=== PATIENT | female | born 1995 | race Caucasian/White ===

== ENCOUNTER 2019-03-11 02:11 | Observation (INO) ==
[2019-03-11] MEDS ORDERED: Ondansetron ODT 4 MG TAB.RAPDIS SL ONE (02:36)
[2019-03-11 02:37] LABS: Bilirubin,Urine Small (Negative); Blood,Urine Small (Negative); Clarity,Urine Clear (Clear); Color,Urine Yellow (Yellow); Glucose,Urine (UA) Normal (Normal); Ketones,Urine >=160 mg/dL (Negative); Leukocyte Esterase,Urine Negative (Negative); Nitrite,Urine Negative (Negative); Protein,Urine 30 mg/dL (Neg-Trace); Specific Gravity,Urine >= 1.030 (1.010-1.025); Urobilinogen,Urine Normal (Normal)
[2019-03-11 02:46] LABS: Mucus,Urine Many (Few); RBC,Urine 0-3 per hpf (0-3); Squamous Epithelial Cell,Urine Few per lpf (None-Few); WBC,Urine 0-3 per hpf (0-3)
[2019-03-11 02:47] LABS: Bacteria,Urine Many per hpf (None-Few)
[2019-03-11] MEDS ORDERED: *HR* Promethazine 25 MG/ML VIAL IVP ONE (03:26)
[2019-03-11] MEDS ORDERED: 0.9 % Sodium Chloride 1,000 ML IVC SCH ×2 (03:30→05:15)
[2019-03-11] MEDS ORDERED: 0.9 % Sodium Chloride 1,000 ML IVC ONE (03:54)
--- NOTE | 2019-03-11 04:46 | Emergency Department Note ---
Disposition Clinical Impression: Marijuana use, continuous, Cannabinoid hyperemesis syndrome Intractable vomiting Qualifiers: Vomiting type: unspecified Nausea presence: unspecified Qualified Code(s): R11.10 - Vomiting, unspecified Disposition: Admitted As Inpatient Condition: Fair Time of Disposition: 05:00 Nausea/Vomiting/Diarrhea HPI - General Chief complaint: ED Nausea/Vomiting/Diarrhea Stated complaint: vomiting, chills Time Seen by Provider: 03/11/19 02:15 Source: patient Limitations: no limitations Nursing Notes Reviewed: Yes Vital Signs Reviewed: Yes - History of Present Illness HPI Narrative: 23-year-old female presents for evaluation of vomiting. Patient was seen earlier yesterday for evaluation of epigastric pain and vomiting. At that time she refused pain medicine and antiemetics but did not respond to IV Pepcid. Patient recently is being evaluated for epigastric pain and vomiting. She was scheduled for an EGD and colonoscopy in January, but due to reaction to bowel prep, though scopes were not done. She has failed to follow-up for further evaluation since that time. Patient has had CT scan of the abdomen in December and ultrasound of the liver in December which showed no acute abnormalities other than fatty infiltration of the liver. Patient was supposed to be taking Prilosec but has not been taking it. Patient also states that she has a regular user of marijuana - Related Data Previous Rx's Medication Instructions Recorded Omeprazole 20 mg PO QDPC #28 tablet. 12/22/18 Promethazine [Phenergan] 25 mg PO Q8HR #21 tablet 12/22/18 Famotidine [Pepcid] 20 mg PO BID #60 tablet 03/10/19 Ondansetron HCl [Zofran] 4 mg PO Q6H PRN #10 tablet 03/10/19 Allergies Allergy/AdvReac Type Severity Reaction Status Date / Time cephalexin [From Keflex] Allergy Swelling Verified 03/11/19 02:24 of Lip/Tongue/Throat doxycycline [From Vibramycin] Allergy Hives Verified 03/11/19 02:24 iodine Allergy Hives Verified 03/11/19 02:24 latex Allergy Hives Verified 03/11/19 02:24 Penicillins Allergy Hives Verified 03/11/19 02:24 acetaminophen [From [place]] AdvReac Nausea Verified 03/11/19 02:24 hydrocodone [From [place]] AdvReac Nausea Verified 03/11/19 02:24 morphine AdvReac Hallucinati Verified 03/11/19 02:24 ng Review of Systems: Constitutional: [Negative for fever and chills.] HENT: [Negative for congestion.] Eyes: [Negative for discharge.] Respiratory: [Negative for shortness of breath.] Cardiovascular: [Negative for chest pain.] Gastrointestinal: see history of present illness Endocrine: [Negative for excessive thirst,urination] Genitourinary: [Negative for dysuria and frequency.] Musculoskeletal: [Negative for myalgias and arthralgias.] Skin: [Negative for rash.] Neurological: [Negative for dizziness, localized weakness and headaches.] Psychiatric/Behavioral: [Negative for nervous/anxious.] All other systems reviewed and are negative. Past Medical History - Past Medical History Attestation: Yes The following information was validated with the patient. Source: patient Medical history: Reports: asthma, other Surgical history: Reports: appendectomy, cholecystectomy Psychiatric history: Reports: no psych history [employer] history: Reports: non-contributory - Social History Smoking Status: Former smoker Smokeless Tobacco Status: No Alcohol use: Reports: rarely Drug use: Reports: marijuana Physical Exam Constitutional: Patient is [alert], morbidly obese and is actively vomiting and cooperative. HENT: Head: Normocephalic and atraumatic. Right Ear: External ear normal. Left Ear: External ear normal. Nose: Nose normal. Mouth/Throat: Oropharynx is clear and mucous membranes show mild dehydration Eyes: Conjunctivae and EOM are normal. Pupils are equal, round, and reactive to light. Right eye exhibits [no] discharge. Left eye exhibits [no] discharge. Neck: Trachea is midline, normal range of motion and [phonation normal]. Neck supple. Cardiovascular: [Regular rhythm], S1 normal, S2 normal, normal heart sounds and intact distal pulses. Exam reveals no gallop and no friction rub. No murmur heard. [Capillary refill is brisk.] [Peripheral pulses are 2+] Pulmonary/Chest: Effort [normal] No stridor. [No] tachypnea. [No] respiratory distress. There are [no] decreased breath sounds. [There no wheezes, no rhonchi, or rales.] Abdominal: Soft. [Bowel sounds are normal]. There exhibits [no] distension and [no] mass. There is no hepatosplenomegaly. There is [no tenderness], [no] CVA tenderness. There is [no rigidity, no rebound, no guarding]. Musculoskeletal: Normal range of motion of uninvolved extremities. There exhibits [no edema]. [ ] Neurological: Patient is alert. Patient displays no atrophy and no tremor. Moves all 4 extremities equally without gross deficit. No cranial nerve deficit and exhibits normal muscle tone. Coordination normal grossly. Skin: Skin is warm and dry. No erythema. No rash noted. Psychiatric: Patient has a [normal mood and affect.] Course Course Narrative: Patient was discussed initially with Dr. Trent but after evaluation of prior testing as determined that Dr. Cote was probably her primary care physician. I spoke with Dr. Cote who will accept the patient for admission Discussed diagnosis and further treatment plans with patient [and significant other]. Q uestions addressed. - Reevaluation(s) Reevaluation #1: Patient has had multiple doses of antiemetics and IV fluids here in the emergency department with no improvement of her symptoms Vital Signs Temperature 98.5 F 03/11/19 02:20 Pulse Rate 71 03/11/19 02:20 Respiratory Rate 18 03/11/19 02:20 Blood Pressure 134/90 03/11/19 02:20 O2 Sat by Pulse Oximetry 100 03/11/19 02:20 Temperature 98.5 F 03/11/19 02:20 Pulse Rate 65 03/11/19 04:24 Respiratory Rate 18 03/11/19 04:24 Blood Pressure 141/79 03/11/19 04:24 O2 Sat by Pulse Oximetry 100 03/11/19 04:24 Oxygen Delivery Oxygen Delivery Room Air Nausea/Vomiting/Diarrhea - [facility] Narrative Medical decision making narrative: With the patient's history of regular marijuana use this may be cannaboid hyperemesis syndrome Other etiologies could include peptic ulcer disease, gastritis, esophagitis, GERD - Lab Data Lab results reviewed: Yes I reviewed the patient's lab results. Lab Results 03/11/19 03/11/19 Range/Units 02:29 02:29 Urine Color Yellow (Yellow) Urine Clarity Clear (Clear) Urine pH 6.0 (5.0-8.0) pH Units Ur Specific [place] >= 1.030 H (1.010-1.025) Urine Protein 30 H (Neg-Trace) mg/dL Urine Glucose (UA) Normal (Normal) mg/dL Urine Ketones >=160 H (Negative) mg/dL Urine Blood Small H (Negative) Urine Nitrite Negative (Negative) Urine Bilirubin Small H (Negative) Urine Urobilinogen Normal (Normal) mg/dL Ur Leukocyte Esterase Negative (Negative) Urine Microscopic RBC 0-3 (0-3) per hpf Urine Microscopic WBC 0-3 (0-3) per hpf Ur Squamous Epith Cells Few (None-Few) per lpf Urine Bacteria Many H (None-Few) per hpf Urine Mucus Many H (Few) Ur Culture Indicated? YES A (NO) Urine Test Negative (Negative) - Radiology Data Radiology results reviewed: Yes I reviewed the patient's radiology results. XR/XR acute abdominal series IMPRESSION: No acute abnormalities seen in the chest abdomen or pelvis
[2019-03-11] MEDS ORDERED: *HR* LORazepam 2 MG/ML VIAL IVP ONE (04:52)
[2019-03-11] MEDS ORDERED: Metoclopramide 10 MG/2 ML VIAL IVP ONE (04:52)
[2019-03-11] MEDS ORDERED: Prochlorperazine 10 MG/2 ML VIAL IVP PRN (06:09)
[2019-03-11] MEDS ORDERED: Pantoprazole 40 MG VIAL IVP ONE ×2 (06:31→06:34)
[2019-03-11] MEDS: 0.9 % Sodium Chloride 1,000 ML IVC SCH ×3 (06:47→22:59)
[2019-03-11] MEDS: Famotidine 20 MG/2 ML VIAL IVP SCH ×3 (06:47→16:56)
--- NOTE | 2019-03-11 07:04 | Internal Med History&Physical ---
Date of Encounter: 03/14/19 Time of Encounter: 06:59 Assessment and Plan (1) Cannabinoid hyperemesis syndrome Status: Acute Given her recurring vomiting that has escalated recently, and given her history of daily marijuana use, this may indeed be cannabinoid hyperemesis syndrome. This would be hard to prove in the short-term, she says however she has stopped smoking marijuana as of today. I told her it may take a while to know whether it may be related to this syndrome. It may be cyclic vomiting syndrome as below. In either case, she will discontinue the marijuana, see what happens over the next few months. She knows it may take a month or longer to have the marijuana out of her system. I have planned a urine test to see if there is anything else in her system for something that she has been using in the vape that she is unaware of. (2) Cyclic vomiting syndrome Status: Acute Because of her history of "stomach flu" in September, 2 weeks of nausea and vomiting in December, and now recurrence of symptoms starting last week d ifferential diagnosis would also include cyclic vomiting syndrome. Interestingly, she has a history of migraine headaches that frequently can accompany this. She has been on an SSRI, she is held recently because of her vomiting. I talked to her about starting amitriptyline to see if this is of help to decrease her migraines but also break the cyclic vomiting syndrome cycle. I talked her about potential side effects of sleepiness, dry mouth, constipation etc. CoQ10 at 200 mg twice a day could be added as well. Qualifiers: Vomiting Intractability: intractable Nausea presence: with nausea Qualified Code(s): G43.A1 - Cyclical vomiting, intractable (3) Right upper quadrant pain Status: Acute Patient is having recurring right upper quadrant and epigastric pain. Sometimes it subsides, other times comes in waves. CT scan was nonfocal. She has had her gallbladder and appendix taken out. She was awaiting her upper and lower endoscopy but she has not heard back from Dr. Marques. She would prefer to have anyone to this, just do it soon. She does not have an acute abdomen. (4) Intractable vomiting Status: Acute Intractable vomiting and having been in the ER twice in a few hours. Right now things are calmed down after she had PPI, Pepcid and Reglan in the ER. Differential diagnosis includes cannabinoid hyperemesis syndrome and cyclic vomiting syndrome as above. Currently I do not see signs of bowel obstruction, acute infection, etc. She has not been sexually active for a while and has a negative test. I do not think this is willful or bulimia. I talked to her about repeating the CT scan and she does not want to do so because of the radiation exposure and also not able to tolerate the oral prep. Qualifiers: Vomiting type: unspecified Nausea presence: unspecified Qualified Code(s): R11.10 - Vomiting, unspecified (5) Rash Status: Acute She has an acute rash on her right thigh that looks like tinea corporis. We will start Chlortrimazole cream. (6) Cardiac murmur Status: Chronic Incidental finding of a cardiac murmur. It sounds benign. I do not think this is related to her symptomatology. This ought to be looked at later as an outpatient though. (7) Weight loss, unintentional Status: Acute According to the scales, she has had in the neighborhood of 50 pounds of unintentional weight loss. This may be due to the vomiting, and may be due to the nausea and anorexia in between times. She had a normal CT scan of the abdomen and December. We will encourage her to follow up with a design engineering manager. Internal Medicine - H&P: HPI Chief complaint: I cannot stop vomiting Admitted From: Emergency Dept Plans for Post Hospital Care: Home History of present illness: Ms. Rodríguez is a 23 year old female who typically sees Marilee Stinson CNP in the office and has been having GI symptoms intermittently for the past few months. She had been in the ER twice in the past few hours because of nausea and vomiting. She was there about 11 PM with abdominal pain and shortness of breath and anxiety. She returned about 2:30 AM and had vomiting and retching intra ctably. She states that her symptoms first started in September when she had the "stomach flu" and she had nausea and vomiting for 3 or 4 days. Then 12/07/18 she had 2 weeks of GI symptoms of nausea and vomiting. She was evaluated in the ER and also in the office and then had an evaluation Dr. Jerald Araiza and was undergoing prep for upper and lower endoscopy. He had placed her on Prilosec and Phenergan. However, she said that she did not tolerate the prep, she said that the director maternal child at told her "that there must be shellfish in the prep" and that they had "no other type of prep to give for her". They do not contact her further, she said she could not contact them again and no workup was done. Then her symptoms recurred 03/02/19 with nausea and vomiting and anorexia.She has a hi story of having had appendectomy as a child, cholecystectomy, ERCP for stone retrieval and CT scans in the ER. She states that she has had almost 50 pounds of weight loss, (320 down to 278 documented in our office). She does have a history of migraine headaches for many years. They do not bother her very often. Typically she can fend them off with allergy medication or OTC Tylenol. Sometimes she has nausea and vomiting. She has a pressure squeezing sensation in her head when that occurs. One time it lasted for 10 days. Typically it will last for one half to one day. She does not always have GI symptoms associated with it. Other pertinent history is that she "vapes"/ Dabs marijuana. She gets a Dab cartridge and uses about 1.1 g per week. She does vape daily. She has been doing this well over a month. She says she gets this from a reputable source. She denies any side effects or problems with the marijuana. She denies any other illicit drug use. Past Med Surg Social Fam HX - Past Medical History Medical history: asthma, migraine, other Additional medical history: fatty liver Psychiatric history: no psych history - Past Surgical History Surgical History: appendectomy, cholecystectomy - Social History Smoking Status: Former smoker Smokeless Tobacco Status: No Alcohol use: rarely Drug use: marijuana (Uses a vape pen daily) Occupational status: unemployed Current living situation: Home Activity Level: Independent ambulation Recent Out of Country Travel Within the Last 8 Weeks: No Exposure or Possible Exposure to Illness During Travel: No - Family History Mother Hx Family Cardiac Disorders: Yes (Hypertension) Hx Family Cancer: Yes (Uterine cancer/hysterectomy) Father Hx Family Cancer: Yes (Lung cancer in his 60s) Sister Hx Family Medical Disorders: Yes (History of anemia) Maternal Grandfather Living Status: Hx Family Cancer: Yes (Prostate cancer) Maternal Grandmother Hx Family Respiratory Disorders: Yes (Sjogren's disease) Internal Medicine - H&P: Meds Omeprazole 20 mg PO QDPC #28 tablet. 12/22/18 [Rx] Famotidine [Pepcid] 20 mg PO BID #60 tablet 03/10/19 [Rx] Amitriptyline [Elavil] 50 mg PO HS #30 tablet 03/12/19 [Rx] Clotrimazole 1% CRM [Lotrimin 1%] 1 appl TP BID tube 03/12/19 [Rx] Promethazine [Phenergan] 25 mg RC Q6HR PRN #10 supp.rect 03/12/19 [Rx] Allergy/AdvReac Type Severity Reaction Status Date / Time cephalexin [From Kef[place]] Allergy Swelling Verified 03/11/19 02:24 of Lip/Tongue/Throat doxycycline [From Vibramycin] Allergy Hives Verified 03/11/19 02:24 iodine Allergy Hives Verified 03/11/19 02:24 latex Allergy Hives Verified 03/11/19 02:24 Penicillins Allergy Hives Verified 03/11/19 02:24 acetaminophen [From [place]] AdvReac Nausea Verified 03/11/19 02:24 hydrocodone [From [place]] AdvReac Nausea Verified 03/11/19 02:24 morphine AdvReac Hallucinati Verified 03/11/19 02:24 ng - Constitutional Constitutional: anorexia, weight loss (As in history of present illness), no excessive sweating, no fever(s) - EENT Eyes: no change in vision Nose, mouth and throat: no dental pain, no dry mouth, no sinus pressure, no sore throat - Cardiovascular Cardiovascular ROS IM: no chest pain, no dyspnea, no dyspnea on exertion, no irregular heart rhythm, no palpitations, no syncope - Respiratory Respiratory: no cough, no hemoptysis - Gastrointestinal Gastrointestinal: abdominal pain (Generally right upper quadrant and epigastric pain), no coffee ground emesis, no constipation, no diarrhea, no hematemesis, no hematochezia, no melena Additional comments: She complains of "heartburn". She also has some "dry heaves" at times - Genitourinary Genitourinary: no dysuria, no pelvic pain, no urinary urgency, no vaginal discharge Menstruation: cycle > 35 days (Her periods are irregular, she is on her menses now, previous one was in mid January) - Musculoskeletal Musculoskeletal ROS IM: no back pain, no joint swelling - Integumentary Integumentary IM: rash (She has a small circular rash on her right anterior thigh. In the past she has had psoriasis-type outbreak on her palms as well as her legs. She showed me pictures. None recently.) - Neurological Neurological ROS: no confusion, no disequilibrium, no tremor(s), no vertigo - Psychiatric Psychiatric: anxiety (She thought she had a panic attack in the ER last night when she is vomiting that made her short of breath.), no behavioral changes, no hallucinations, no memory loss - Constitutional Vitals: Temp Pulse Resp BP Pulse Ox 97.6 F 60 16 111/70 99 03/11/19 05:44 03/11/19 05:44 03/11/19 05:44 03/11/19 05:44 03/11/19 05:44 General appearance: Present: A&O X 3, no acute distress, obese, answers questions appropriately Exam: A few hours after admission and being treated in the ER, she was comfortable, quiet, conversant and in no distress. - Head Head exam: Present: atraumatic, normal inspection - ENT ENT exam: Present: normal oropharynx, TM's normal bilaterally - Respiratory Respiratory exam: Present: CTAB - Cardiovascular Cardiovascular exam: Present: RRR, +S1, +S2, systolic murmur (2/6 systolic murmur at the left sternal border) - GI/Abdominal GI/Abdominal exam: Present: soft. Absent: distended, guarding, hepatomegaly, mass, splenomegaly, tenderness Additional comments: Examination was done just a few hours after treatment in the ER with intravenous medication. - Extremities Exam Extremities exam: Absent: calf tenderness, pedal edema, tenderness - Neurological Exam Neurological exam: Present: alert, CN II-XII intact, oriented X3, strengths equal and symetr throughout - Psychiatric Psychiatric exam: Present: normal affect, normal mood. Absent: agitated, anxious, suicidal ideation - Skin Additional comments: Right anterior thigh is a well-circumscribed erythematous patch with sharp borders and partial clearing center consistent with tinea. She has extensive tattoo in the left thigh Internal Med - H&P Results - Labs Labs: Urine 03/11/19 Range/Units 02:29 Urine Color Yellow (Yellow) Urine Clarity Clear (Clear) Urine pH 6.0 (5.0-8.0) pH Units Ur Specific [place] >= 1.030 H (1.010-1.025) Urine Protein 30 H (Neg-Trace) mg/dL Urine Glucose (UA) Normal (Normal) mg/dL Labs from the ER have been reviewed. Urine shows increased specific gravity and ketones. Her blood work was fairly unremarkable otherwise - VTE Reasons for not Prescribing Prophylaxis: Treatment not Indicated - Low risk for VTE
[2019-03-11] MEDS: Pantoprazole 40 MG VIAL IVP SCH (09:13)
[2019-03-11] MEDS: Clotrimazole 1% CRM 15 GM TUBE TP SCH ×2 (11:22→20:22)
--- NOTE | 2019-03-11 20:04 | Event Note ---
Date of Encounter: 03/11/19 Time of Encounter: 19:30 I reevaluated the patient this evening. This morning she was doing well, and then this afternoon she had nausea. She has had some soda, but virtually no solid intake other than trying one saltine cracker. She said she had dry heaves, but did not tell the nurse or staff. She is holding an emesis bag. She wanted to be medicated and the evening Pepcid was given intravenously early. Phenergan 25 mg by mouth as initiated. She states she is having "abdominal pain" and points to the epigastric area. She is holding an emesis bag. However during conversation she seemed to be comfortable and cooperative. She does have mild epigastric tenderness on palpation without guarding or rebound. She has normal bowel sounds. Vitals remained stable. I talked to her about CT scan of the abdomen. I thought she had one in the ER last night, but she did not. Her last one was in December. It was normal. She does not want to have another CT at this time because of the concern about radiation exposure and inability to keep down oral contrast. I am not sure it would change our game plan.
[2019-03-12] MEDS ORDERED: *HR* Enoxaparin 40 MG/0.4 ML SYRINGE SQ SCH (06:00)
[2019-03-12] MEDS: 0.9 % Sodium Chloride 1,000 ML IVC SCH ×2 (08:59→12:56)
[2019-03-12] MEDS: Clotrimazole 1% CRM 15 GM TUBE TP SCH (08:59)
[2019-03-12] MEDS: Pantoprazole 40 MG VIAL IVP SCH (09:00)
[2019-03-12] MEDS: Famotidine 20 MG/2 ML VIAL IVP SCH (09:01)
[2019-03-12 15:27] VITALS: BP 117/77
--- NOTE | 2019-03-12 15:42 | Discharge Summary ---
Orders not resulted at time of discharge: Pending orders 03/11/19 21:02 Pain Mgt Urine Drug Screen Routine Date of Encounter: 03/12/19 Time of Encounter: 15:35 - Discharge Diagnosis (1) Epigastric pain Priority: Secondary Status: Acute Comments: She states she has it her abdomen is benign amylase lipase LFTs CBC were within range on admission she declined a CAT scan. (2) Marijuana use, continuous Priority: Secondary Status: Acute Comments: Discussed it would be a good idea to quit this as it could be complicating her picture also discussed not using herbal supplements [id number] things alcohol etc. to try to avoid things that would induce nausea (3) Cannabinoid hyperemesis syndrome Priority: Secondary Status: Acute Comments: Discussed that she should hold off on using and this may help. (4) Cyclic vomiting syndrome Priority: Primary Status: Acute Comments: She just started her period this morning I think that is this may also be related to her irregular menstrual cycle it seems to occur whenever she has her menstrual cycle. She went to the walk-in clinic to see the [facility] Dr. Stone but they were closed that day. I encouraged her to go back there on March 16 at the walk-in hours to be seen. We just added amitriptyline I would be hesitant to add control pills to this she states that she is also be worked up for autoimmune as well. She states she has not heard back from the GI's office. I encouraged her to look into a web portal to see if that was available to call the office to reschedule the endoscopies if she could not get anywhere with that than just simple schedule an office visit with Dr. Marques. She states that she is going to do that but her mother may go ahead and schedule her summer up at [place]. Upon further review of her outpatient chart I discovered she had no showed at [facility] in the past as well. We will send her home with some Phenergan suppositories in the amitriptyline continue her PPI and Pepcid as needed. She has not had any vomiting since she has been here and she has been here for 2 days. She is not eating very well but that is not anything that has changed she has not been eating very well she said since she was 5 years old she has been in and out of the hospital with abdominal pain with nausea vomiting with her appendix with her gallbladder with epigastric pain for years. On physical exam her abdomen was benign. She declined a CAT scan she was worried about radiation that was 10,000 times that of an x-ray. I assured her that that dose of radiation was not anywhere near that high but she still declined to do. She is to follow-up in the office next week with the nurse practitioner and she is to schedule follow-up with a safety assistant. Her story varies about how often that she has called them she says that she has called them lots of times and once or twice a week but skips several weeks she is tearful when she starts to discuss it. sHe had been on Zoloft and citalopram in the past and BuSpar she ended up not taking them due to the fact she was having emesis we will try amitriptyline with rectal suppository of Phenergan. On the day of discharge she was in no acute distress she was playing on her phone and pleasant and interactive in the room she was laughing and tearful at times. Qualifiers: Vomiting Intractability: intractable Nausea presence: with nausea Qualified Code(s): G43.A1 - Cyclical vomiting, intractable (5) Weight loss, unintentional Priority: Secondary Status: Acute Comments: This is been ongoing for some time it is not something that just occurred overnight she was sensitive to endoscopies could not tolerate the prep she canceled the procedure I discussed that she needs to do the colonoscopy and EGD to get an answer to what is going on and get a better picture. She states she is going to call the GI. Hospital course: Ms. Rodríguez is a 23 year old female Who presented with vomiting she just started her. She states this often happens with her. I think that this is likely most related started amitriptyline give her Phenergan suppositories she is going to follow-up with gastroenterology she is also to follow-up with [facility] she has these numbers and has been seen in the gastroenterology office in the past. [facility]. Discussed that we cannot do an inpatient endoscopy here at [facility] even if we transferred her here she was not having symptoms that warranted an acute scope everything would be done as an outpatient. She was not eating the food on her tray but family was bringing in food for her she has had weight loss over a period of time which she currently is in no acute distress we will go ahead and send her home for outpatient follow-up and continued outpatient workup. Discharge discussed with: patient - Time Spent with Patient Total time spent providing and/or coordinating discharge services: Time spent: Greater than 30 minutes - Discharge Medications Prescriptions: New Amitriptyline [Elavil] 50 mg PO HS #30 tablet Clotrimazole 1% CRM [Lotrimin 1%] 1 appl TP BID tube Promethazine [Phenergan] 25 mg RC Q6HR PRN #10 supp.rect PRN Reason: Vomiting Continued Omeprazole 20 mg PO QDPC #28 tablet. Famotidine [Pepcid] 20 mg PO BID #60 tablet Discontinued Promethazine [Phenergan] 25 mg PO Q8HR #21 tablet Home Medications: Omeprazole 20 mg PO QDPC #28 tablet. 12/22/18 [Rx] Famotidine [Pepcid] 20 mg PO BID #60 tablet 03/10/19 [Rx] Amitriptyline [Elavil] 50 mg PO HS #30 tablet 03/12/19 [Rx] Clotrimazole 1% CRM [Lotrimin 1%] 1 appl TP BID tube 03/12/19 [Rx] Promethazine [Phenergan] 25 mg RC Q6HR PRN #10 supp.rect 03/12/19 [Rx] Allergies/Adverse Reactions: Allergy/AdvReac Type Severity Reaction Status Date / Time cephalexin [From Keflex] Allergy Swelling Verified 03/11/19 02:24 of Lip/Tongue/Throat doxycycline [From Vibramycin] Allergy Hives Verified 03/11/19 02:24 iodine Allergy Hives Verified 03/11/19 02:24 latex Allergy Hives Verified 03/11/19 02:24 Penicillins Allergy Hives Verified 03/11/19 02:24 acetaminophen [From Ketchum] AdvReac Nausea Verified 03/11/19 02:24 hydrocodone [From Ketchum] AdvReac Nausea Verified 03/11/19 02:24 morphine AdvReac Hallucinati Verified 03/11/19 02:24 ng Date of admission: 03/11/19 05:09 Primary care physician: Marilee Stinson CNP - Constitutional Vitals: Temp Pulse Resp BP Pulse Ox 98.7 F 70 18 117/77 98 03/12/19 15:26 03/12/19 15:26 03/12/19 15:26 03/12/19 15:26 03/12/19 15:26 General appearance: Present: A&O X 3, no acute distress, obese, answers questions appropriately - Head Head exam: Present: atraumatic, normocephalic - Neck Neck exam general surgery: Present: normal inspection, supple, trachea midline. Absent: lymphadenopathy - Respiratory Respiratory exam: Present: CTAB - Cardiovascular Cardiovascular exam: Present: RRR, systolic murmur (1 out of 6) - GI/Abdominal GI/Abdominal exam: Present: normal bowel sounds, soft, tenderness, no peritoneal signs. Absent: guarding, mass (But obese) - Extremities Exam Extremities exam: Present: normal capillary refill, warm. Absent: pedal edema - Skin Skin exam: Present: dry, warm - Patient Status Disposition: Home, Self-Care Condition: Fair Functional capacity at discharge: independent ambulation - Discharge Instructions Follow Up With: Marilee Stinson, [employer] [Primary Care Provider] - 03/16/19 1:00 pm Additional Instructions: Please be sure and call Marylin's office to reschedule your endoscopies. If that does not work please call his office for an office visit. If you have trouble with this you can was contact our office to help. - Diet and Activity Activity: resume usual activities as tolerated Diet: advance to your usual diet - VTE Reasons for not Prescribing Prophylaxis: Treatment not Indicated - Low risk for VTE
== END 2019-03-12 16:40 | disposition home or self-care (01) ==
LOC: EMEROOGRE 02:11 → INPGRE 02:11
PROVIDERS: ADMIT Family Medicine; ATTEND Family Medicine